=== PATIENT | female | born 1990 | race American Indian/Alaskan Native ===

== ENCOUNTER 2021-05-18 14:19 | Emergency (ER) | payer MEDICAID ==
--- NOTE | 2021-05-18 15:11 | Emergency Department Report ---
ED General Adult HPI - General Chief complaint: Syncope Stated complaint: SYNCOPAL EPISODES Time Seen by Provider: 05/18/21 14:59 Source: patient, EMS Mode of arrival: Stretcher Limitations: No Limitations - History of Present Illness Initial comments: Patient is 31 years old morbidly obese female with history of hypertension. Patient presented with the ER complaining of several episode of syncope for the last few days. Patient stated that she has been bleeding for approximately 3weeks. Patient stated that she has similar episode last year. Patient denied any chest pain or shortness of breath. Patient denied any fever chills, nausea or vomiting. Patient stated that she is 4 para 2 with 2 . - Related Data Previous Rx's Medication Instructions Recorded Last Taken Type Docusate Sodium [Colace] 100 mg PO BID PRN #60 capsule 05/18/21 Unknown Rx Ferrous Sulfate [Ferrous Sulfate 324 mg PO BID #60 05/18/21 Unknown Rx 324 MG] medroxyPROGESTERone ACETATE 10 mg PO QDAY #10 tablet 05/18/21 Unknown Rx [Provera] Allergies Allergy/AdvReac Type Severity Reaction Status Date / Time No Known Allergies Allergy Verified 05/18/21 14:23 ED Review of Systems ROS: Stated complaint: SYNCOPAL EPISODES Other details as noted in HPI Comment: All other systems reviewed and negative Constitutional: denies: chills, fever Respiratory: denies: cough, shortness of breath, SOB with exertion Cardiovascular: palpitations. denies: chest pain Gastrointestinal: denies: abdominal pain, nausea, vomiting, diarrhea, constipation, hematemesis Musculoskeletal: denies: back pain Neurological: other (SYNCOPE). denies: headache, weakness, numbness, paresthesias Psychiatric: denies: suicidal thoughts ED Past Medical Hx - Medications Home Medications: Home Medications Medication Instructions Recorded Confirmed Last Taken Type Docusate Sodium [Colace] 100 mg PO BID PRN #60 capsule 05/18/21 Unknown Rx Ferrous Sulfate [Ferrous Sulfate 324 mg PO BID #60 05/18/21 Unknown Rx 324 MG] medroxyPROGESTERone ACETATE 10 mg PO QDAY #10 tablet 05/18/21 Unknown Rx [Provera] ED Physical Exam - General Limitations: No Limitations General appearance: alert, in no apparent distress - Head Head exam: Present: atraumatic, normocephalic, normal inspection - Eye Eye exam: Present: other (Pale conjunctive a.) - ENT ENT exam: Present: normal exam, normal orophraynx, mucous membranes moist - Neck Neck exam: Present: normal inspection, full ROM. Absent: tenderness, meningis mus - Respiratory Respiratory exam: Present: normal lung sounds bilaterally - Cardiovascular Cardiovascular Exam: Present: tachycardia - GI/Abdominal GI/Abdominal exam: Present: soft, normal bowel sounds. Absent: distended, tenderness, guarding, rebound, rigid, organomegaly, mass, bruit, pulsatile mass, hernia - Extremities Exam Extremities exam: Present: normal inspection, full ROM, normal capillary refill. Absent: tenderness, pedal edema, joint swelling, calf tenderness - Back Exam Back exam: Present: normal inspection, full ROM. Absent: CVA tenderness (R), CVA tenderness (L), muscle spasm, paraspinal tenderness, vertebral tenderness - Neurological Exam Neurological exam: Present: alert, oriented X3, CN II-XII intact, normal gait, reflexes normal. Absent: motor sensory deficit - Psychiatric Psychiatric exam: Present: normal mood - Skin Skin exam: Present: warm, intact, normal color ED Course Vital Signs 05/18/21 05/18/21 05/18/21 14:20 14:23 15:24 Temperature 98.6 F Pulse Rate 110 H 109 H Respiratory 16 18 Rate Blood Pressure Blood Pressure 124/69 148/84 [Left] O2 Sat by Pulse 100 99 100 Oximetry 05/18/21 05/18/21 05/18/21 16:09 17:21 18:22 Temperature Pulse Rate 99 H 106 H 108 H Respiratory 20 11 L 12 Rate Blood Pressure Blood Pressure 128/56 134/72 117/73 [Left] O2 Sat by Pulse 100 99 100 Oximetry 05/18/21 05/18/21 05/18/21 21:16 21:31 22:01 Temperature 98.9 F 98.9 F 98 F Pulse Rate 109 H 108 H 98 H Respiratory 16 16 16 Rate Blood Pressure 125/80 127/74 138/72 Blood Pressure 125/80 127/74 [Left] O2 Sat by Pulse 100 98 97 Oximetry 05/18/21 05/18/21 05/18/21 22:31 23:01 23:31 Temperature 98.3 F 98.2 F 98.2 F Pulse Rate 101 H 100 H 102 H Respiratory 16 16 16 Rate Blood Pressure 101/54 115/52 111/55 Blood Pressure [Left] O2 Sat by Pulse 100 98 Oximetry 05/18/21 05/19/21 05/19/21 23:32 01:05 01:06 Temperature 98.9 F 98.3 F 98.3 F Pulse Rate 108 H 101 H 100 H Respiratory 16 16 16 Rate Blood Pressure 127/74 113/56 Blood Pressure 113/56 [Left] O2 Sat by Pulse 98 98 100 Oximetry 05/19/21 05/19/21 05/19/21 01:20 01:50 02:20 Temperature 98.3 F 98.3 F 98.2 F Pulse Rate 97 H 99 H 96 H Respiratory 16 16 16 Rate Blood Pressure 118/68 123/75 123/75 Blood Pressure [Left] O2 Sat by Pulse 98 98 98 Oximetry 05/19/21 05/19/21 05/19/21 02:50 03:15 03:23 Temperature 98.3 F 98.3 F 98.3 F Pulse Rate 95 H 95 H 95 H Respiratory 16 16 16 Rate Blood Pressure 122/70 130/72 Blood Pressure 130/72 [Left] O2 Sat by Pulse 98 100 98 Oximetry 05/19/21 05:29 Temperature 98.3 F Pulse Rate 96 H Respiratory 16 Rate Blood Pressure Blood Pressure 130/86 [Left] O2 Sat by Pulse 98 Oximetry ED Medical Decision Making - Lab Data Result diagrams: 05/19/21 04:09 05/18/21 15:15 - Radiology Data Radiology results: report reviewed - Medical Decision Making Patient is 31 years old morbidly obese female with history of hypertension. Patient presented with the ER complaining of several episode of syncope for the last few days. Patient stated that she has been bleeding for approximately 3weeks. Patient stated that she has similar episode last year. Patient denied any chest pain or shortness of breath. Patient denied any fever chills, nausea or vomiting. Patient stated that she is 4 para 2 with 2 . Patient slightly tachycardic. Labs reviewed and show a hemoglobin of 5.2. 2 units of PRBC ordered. Pelvic ultrasound showed heterogeneous endometrium warranting biopsy. Patient informed about the ultrasound finding and advised to follow-up with gynecology in 2 to 3 days. Patient stated that she is having appointment with my [facility] in the next 2 to 3 days. I started patient on Prov era 10 mg daily for 10days. Patient advised to return to the ER if she develop any new symptoms. Critical Care Time: Yes Critical care time in (mins) excluding proc time.: 35 Critical care attestation.: If time is entered above; I have spent that time in minutes in the direct care of this critically ill patient, excluding procedure time. ED Disposition Clinical Impression: Syncope, Acute anemia, Abnormal vaginal bleeding Disposition: HOME / SELF CARE / HOMELESS Is pt being admited?: No Condition: Stable Instructions: Abnormal Uterine Bleeding, Near-Syncope, [id number], Syncope (ED) Prescriptions: Docusate Sodium [Colace] 100 mg PO BID PRN #60 capsule PRN Reason: Constipation Ferrous Sulfate [Ferrous Sulfate 324 MG] 324 mg PO BID #60 medroxyPROGESTERone ACETATE [Provera] 10 mg PO QDAY #10 tablet Referrals: PRIMARY CARE, [Primary Care Provider] - 3-5 Days [facility] [Provider Group] - 3-5 Days
[2021-05-18 16:05] LABS: Basophils # (Auto) 0.1 K/mm3 (0.0-0.1); Basophils % (Auto) 0.6 % (0.0-1.8); Eosinophils # (Auto) 0.1 K/mm3 (0.0-0.4); Eosinophils % (Auto) 0.8 % (0.0-4.3); Lymphocytes # (Auto) 2.2 K/mm3 (1.2-5.4); Lymphocytes % (Auto) 18.1 % (13.4-35.0); Mean Corpuscular HGB Conc 29 % (30-34); Monocytes # (Auto) 0.6 K/mm3 (0.0-0.8); Monocytes % (Auto) 4.8 % (0.0-7.3); Platelet Count 410 K/mm3 (140-440); Red Blood Count 2.73 M/mm3 (3.65-5.03); Red Cell Distribution Width 18.2 % (13.2-15.2)
[2021-05-18 16:16] LABS: Hemoglobin 5.2 gm/dl (10.1-14.3); Mean Corpuscular Volume 66 fl (79-97)
[2021-05-18 16:27] LABS: BUN/Creatinine Ratio 9; Blood Urea Nitrogen 8 mg/dL (7-17); Calcium 9.1 mg/dL (8.4-10.2); Hemolysis Index 4; INR 0.92 (0.87-1.13)
[2021-05-18 16:30] LABS: Alanine Aminotransferase 8 units/L (7-56); Albumin 4.2 g/dL (3.9-5)
[2021-05-18] MEDS ORDERED: SODIUM CHLORIDE 0.9% 500 ML 500 ML IV ONE (16:34)
[2021-05-18 16:35] LABS: Bilirubin,Direct < 0.2 mg/dL (0-0.2)
--- NOTE | 2021-05-18 17:47 | Ultrasound Report ---
ULTRASOUND PELVIS INDICATION / CLINICAL INFORMATION: pelvic pain and excessive vaginal bleeding. TECHNIQUE: Transabdominal and Transvaginal. Duplex Color Doppler used: Yes. COMPARISON: None available FINDINGS: UTERUS: - Appearance: No significant abnormality. - Size (cm): 10.9 x 5.4 x 6.3 - Endometrial Complex (if present): Heterogeneous echotexture. Thickness in cm (if measured) = 1.9 - Mass or cyst: None. - Additional findings: None. RIGHT ADNEXA: Right ovary measures 3.5 x 2.4 x 3.4 cm and has a normal sonographic appearance. Normal color Doppler blood flow. LEFT ADNEXA: The left ovary measures 3.0 x 2.1 x 4.4 cm and has a cyst measuring up to 2.7 cm. Normal color Doppler blood flow. URINARY BLADDER: No significant abnormality. FREE FLUID: None. ADDITIONAL FINDINGS: None. IMPRESSION: 1. Heterogeneous echotexture of the endometrium which is slightly thickened measuring 1.9 cm. Endomet rial biopsy may be warranted given the heterogeneous appearance. 2. There is a 2.7 cm left ovarian cyst. Signer Name: Kishore Mckeon DO Signed: 05/18/2021 5:42 PM Workstation Name: [id number]
[2021-05-19 04:26] LABS: Hemoglobin 7.8 gm/dl (10.1-14.3)
[2021-05-19 04:34] LABS: Hematocrit 25.8 % (30.3-42.9)
[2021-05-19 05:30] VITALS: BP 130/86
--- NOTE | 2021-05-19 10:11 | Electrocardiograph Report ---
[facility] Test Date: 2021-05-18 Test Time: 15:29:50 Pat Name: COREEN CELESTIN Department: Room: Gender: F [employer]: NURSE : 1990 Requested By: AVA CONROY Order Number: [id number] Reading MD: Liza Fulton Measurements Intervals [place] Rate: 98 P: 49 CO: 161 QRS: 23 QRSD: 79 T: 30 QT: 337 QTc: 431 Interpretive Statements Sinus rhythm No previous ECG available for comparison Electronically Signed On 05-19-2021 10:10:45 EST by Liza Fulton
== END 2021-05-19 05:29 | disposition home or self-care (01) ==
LOC: ED 14:19
DX: R55 Syncope and collapse (principal); D64.9 Anemia, unspecified; N93.9 Abnormal uterine and vaginal bleeding, unspecified
CPT/HCPCS: 36415; 36430; 76830; 76856; 80048; 80076; 84703; 85014; 85018; 85025; 85610; 86850; 86900; 86901; 86920; 93005; 93010; 99284; J7040; P9016

== ENCOUNTER 2021-11-16 17:48 | Emergency (ER) | payer MEDICAID ==
[2021-11-16 18:24] VITALS: BP 125/78
== END 2021-11-16 20:30 | disposition left against medical advice (07) ==
LOC: ED 17:48
DX: N76.89 Other specified inflammation of vagina and vulva (principal); Z53.21 Procedure and treatment not carried out due to patient leaving prior to being seen by health care provider